=== PATIENT | female | born 1990 | race Caucasian/White ===

== ENCOUNTER 2016-06-12 19:22 | Emergency (ER) | payer MEDICAID ==
[~2016-06-12] VITALS: Ht 139.7 cm; Wt 53.2 kg
[2016-06-12 19:33] VITALS: BP 102/72
[2016-06-12] MEDS ORDERED: DEXAMETHASONE 4 MG TABLET ONE (19:44)
[2016-06-12] MEDS ORDERED: DEXAMETHASONE 4 MG TABLET PO ONE (20:00)
== END 2016-06-12 20:57 | disposition home or self-care (01) ==
LOC: ED 20:51
DX: H65.01 Acute serous otitis media, right ear (principal); J02.8 Acute pharyngitis due to other specified organisms; B96.89 Other specified bacterial agents as the cause of diseases classified elsewhere; F41.1 Generalized anxiety disorder
CPT/HCPCS: 87081; 87880; 99284

== ENCOUNTER 2019-04-23 05:44 | Emergency (ER) | payer MEDICAID ==
[~2019-04-23] VITALS: Ht 139.7 cm; Wt 54.7 kg
[2019-04-23 05:47] VITALS: BP 109/40
[2019-04-23 07:31] LABS: CULTURE INDICATED? YES; MICROSCOPIC INDICATED
--- NOTE | 2019-04-23 07:35 | NUR ---
ERPBRANNON IN TO AJITH PT, UA SAMPLE COLLECTED AND WALKED TO LAB.
[2019-04-23] MEDS ORDERED: CEFTRIAXONE 1,000 MG ONE (08:24)
[2019-04-23] MEDS ORDERED: LIDOCAINE-MPF 1%, 2ML ONE (08:25)
[2019-04-23] MEDS ORDERED: CEFTRIAXONE 1,000 MG IM ONE (08:30)
== END 2019-04-23 08:34 | disposition home or self-care (01) ==
LOC: ED 06:52
DX: N30.00 Acute cystitis without hematuria (principal)
CPT/HCPCS: 81001; 87077; 87086; 87186; 96372; 99283; J0696

== ENCOUNTER 2020-08-03 20:22 | Emergency (ER) | payer MEDICAID ==
[~2020-08-03] VITALS: Ht 139.7 cm; Wt 44.5 kg
[2020-08-03 20:24] VITALS: BP 101/69
== END 2020-08-03 21:18 | disposition home or self-care (01) ==
LOC: ED 21:00
DX: K05.00 Acute gingivitis, plaque induced (principal)
CPT/HCPCS: 99282